=== PATIENT | male | born 1980 | race Caucasian/White ===

== ENCOUNTER 2018-10-01 16:14 | Emergency (ER) | payer OTHER ==
[~2018-10-01] VITALS: Ht 175.3 cm; Wt 81.7 kg
[2018-10-01] MEDS ORDERED: PRED10 PO (16:46)
== END 2018-10-01 16:49 | disposition home or self-care (01) ==
LOC: ER 16:14
DX: M25.572 Pain in left ankle and joints of left foot (principal)
CPT/HCPCS: 73610; 99283-25